=== PATIENT | male | born 1960 | race Caucasian/White ===

== ENCOUNTER 2016-11-14 12:12 | Emergency (ER) | payer BC ==
[~2016-11-14] VITALS: Ht 177.8 cm; Wt 102.1 kg
[2016-11-14 12:14] VITALS: Ht 177.8 cm; Wt 102.1 kg
--- NOTE | 2016-11-14 12:37 | EMERGENCY ROOM VISIT NOTE ---
History Report prepared by Melissa: Traci Parson Under the Supervision of: Dr. Laurie Garvey D.O. First contact with patient: 12:17 Chief Complaint: LEG PAIN,LEG INJURY Stated Complaint: SWOLLEN, PAINFUL R CALF AFTER 700M DRIVING History of Present Illness The patient is a 56 year old male who presents to the Emergency Room with complaints of sudden right calf pain starting yesterday. The patient notes that he has swelling in his calf as well as notable pain in his right leg when walking. He denies numbness, tingling or pain in his joints. He also notes that he was bitten by a snake on his right leg several years ago. 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 He states he has a family history of of hypertension, and diabetes. He denies any history of DVTs. His past surgical history includes an umbilical hernia repair. Source of History: patient Onset: yesterday Position: leg (right) Timing: other (sudden) Modifying Factors (Worsening): other (walking) Associated Symptoms: No numbness Note: patient denies numbness or joint pain Review of Systems See HPI for pertinent positives & negatives. A total of 10 systems reviewed and were otherwise negative. Past Medical & Surgical Surgical Problems: (1) Umbilical hernia Family History Diabetes mellitus Hypertension Social History Smoking Status: Never Smoker Housing Status: lives with family Occupation Status: employed Current/Historical Medications No Active Prescriptions or Reported Meds Allergies Coded Allergies: No Known Allergies (Unverified , 11/14/16) Physical Exam Vital Signs Date Time Temp Pulse Resp B/P (MAP) Pulse Ox O2 Delivery O2 Flow Rate FiO2 11/14/16 15:25 64 16 145/92 97 Room Air 11/14/16 14:12 88 16 162/96 95 Room Air 11/14/16 12:14 37.1 85 16 172/91 95 Physical Exam GENERAL: alert, well appearing, well nourished, no distress, non-toxic EYE EXAM: normal conjunctiva, PERRL and EOM's grossly intact OROPHARYNX: no exudate, no erythema, lips, buccal mucosa, and tongue normal and mucous membranes are moist NECK: supple, no nuchal rigidity, no adenopathy, non-tender LUNGS: Clear to auscultation. Normal chest wall mechanics HEART: no murmurs, S1 normal and S2 normal ABDOMEN: abdomen soft, non-tender, normo-active bowel sounds, no masses, no rebound or guarding. BACK: Back is symmetrical on inspection and there is no deformity, no midline tenderness, no CVA tenderness. SKIN: no rashes and no bruising UPPER EXTREMITIES: upper extremities are grossly normal. LOWER EXTREMITIES: No pitting edema. Increased varicosity chronic. No reproducible calf tenderness, no joint effusion Medical Decision & Procedures ER Provider Diagnostic Interpretation: Radiology results have been interpreted by the radiologist and reviewed by me. RIGHT LOWER EXTREMITY VENOUS DOPPLER FINDINGS: The common femoral, superficial femoral and popliteal veins were compressible. Augmentation was normal. Flow was shown within the deep calf vessels. Patent varicosities were noted within the anterior right calf. IMPRESSION: No evidence of deep venous thrombus within the right lower extremity. Electronically signed by: Bishop Hull M.D. RIGHT LOWER EXTREMITY ARTERIAL DOPPLER ULTRASOUND FINDINGS: Triphasic waveforms were identified within the right common femoral, profunda, superficial femoral, popliteal, posterior tibial, anterior tibial, peroneal and dorsalis pedis vessels. No elevated velocities were identified. No significant atherosclerotic plaque was identified. IMPRESSION: Unremarkable right lower extremity arterial Doppler ultrasound. Electronically signed by: Bishop Hull M.D. ED Course 1220: The patient was evaluated in room A3. A complete history and physical exam was performed. 1535: I informed the patient of the results of his imaging results he his ready to be discharged. 1540: Upon reevaluation, the patient is feeling better. I discussed the findings and the treatment plan with the patient. He verbalizes agreement and understanding. The patient was discharged home. Medical Decision Differential diagnosis: Etiologies such as DVT, musculoskeletal, infection, joint effusion, trauma, lymphedema, idiopathic, CHF, as well as others were entertained.. Patient well-appearing here despite complaints, no other more systemic complaints, and right calf pain did resolve by the time of presentation here. Patient concerned given occupation and long car ride recently. Ultrasounds negative and His reports given the patient. Vital signs stable throughout. No evidence of cellulitis or infectious etiology. No recent history of trauma. Patient with chronic increased vascularity is of the right lower extremity secondary to remote snakebite to that leg. Patient comfortable with plan for discharge and outpatient follow-up. Patient aware symptoms to watch and return for was agreeable with plan. Medication Reconcilliation Current Medication List: was personally reviewed by me Blood Pressure Screening Patient's blood pressure: Normal blood pressure Blood pressure disposition: Did not require urgent referral Impression Primary Impression: Leg pain, right Scribe Attestation The scribe's documentation has been prepared under my direction and personally reviewed by me in its entirety. I confirm that the note above accurately reflects all work, treatment, procedures, and medical decision making performed by me. Departure Information Dispostion Home / Self-Care Prescriptions No Active Prescriptions or Reported Meds Referrals No Doctor, Assigned (PCP) Forms HOME CARE DOCUMENTATION FORM, IMPORTANT VISIT INFORMATION Patient Instructions My [facility] Additional Instructions Please follow up with your family doctor. You may eat and drink normally. Please continue to monitor for any changing symptoms in your leg. If you develop any recurrent or worsening pain, develop swelling at the knee, swelling of the lower leg, numbness or tingling, discoloration, rashes or sores, fevers or chills, chest pain or trouble breathing, please return to the ER immediately. Please try to stop and walk or move around at regular intervals when traveling or flying long distances. If you have persistent symptoms, you may need a repeat ultrasound of the leg as a precaution.
[2016-11-14 15:25] VITALS: BP 145/92; PULSE 64; O2SAT 97
--- NOTE | 2016-11-14 15:35 | DIAGNOSTIC IMAGING REPORT ---
RIGHT LOWER EXTREMITY VENOUS DOPPLER CLINICAL HISTORY: Right edema and calf pain. COMPARISON STUDY: No previous studies for comparison. TECHNIQUE: Sonography of the deep venous system of the right lower extremity was performed. Compression and augmentation were evaluated. FINDINGS: The common femoral, superficial femoral and popliteal veins were compressible. Augmentation was normal. Flow was shown within the deep calf vessels. Patent varicosities were noted within the anterior right calf. IMPRESSION: No evidence of deep venous thrombus within the right lower extremity. Electronically signed by: Bishop Hull M.D. 11/14/2016 3:34 PM Dictated Date/Time: 11/14/2016 3:33 PM
--- NOTE | 2016-11-14 15:37 | DIAGNOSTIC IMAGING REPORT ---
RIGHT LOWER EXTREMITY ARTERIAL DOPPLER ULTRASOUND CLINICAL HISTORY: Right lower extremity pain. COMPARISON STUDY: No previous studies for comparison. TECHNIQUE: Grayscale and color and duplex Doppler sonography of the right lower extremity was performed. The patient deferred ankle to brachial indices. FINDINGS: Triphasic waveforms were identified within the right common femoral, profunda, superficial femoral, popliteal, posterior tibial, anterior tibial, peroneal and dorsalis pedis vessels. No elevated velocities were identified. No significant atherosclerotic plaque was identified. IMPRESSION: Unremarkable right lower extremity arterial Doppler ultrasound. Electronically signed by: Bishop Hull M.D. 11/14/2016 3:36 PM Dictated Date/Time: 11/14/2016 3:35 PM
== END 2016-11-14 15:52 | disposition home or self-care (01) ==
LOC: C.EDB 12:14 → C.EDA 15:52
DX: M79.661 Pain in right lower leg (principal); Z83.3 Family history of diabetes mellitus; Z82.49 Family history of ischemic heart disease and other diseases of the circulatory system